=== PATIENT | male | born 1990 | race Caucasian/White ===

== ENCOUNTER 2025-08-19 16:11 | Emergency (ER) | payer OTHER ==
[~2025-08-19] VITALS: Ht 172.7 cm; Wt 90.0 kg
[2025-08-19 16:19] VITALS: TEMP 97.9
[2025-08-19] MEDS: LIDOCAINE 1% 10 ML VIAL ID ONE (18:25)
[2025-08-19] MEDS: PERTUSS(ACELL),DIPH,TET/PF 0.5 ML SYRINGE [ADULT] IM. ONE (18:25)
[2025-08-19] MEDS ORDERED: CEPH-558 PO (18:42)
[2025-08-19] MEDS ORDERED: IBUP-1492 PO (18:42)
[2025-08-19] MEDS ORDERED: SULF1TAB94 PO (18:42)
[2025-08-19 19:00] VITALS: BP 130/84; PULSE 75; RESP 18; O2SAT 98
[2025-08-19] MEDS: CEPHALEXIN MONOHYDRATE 500 MG CAPSULE PO ONE (19:00)
[2025-08-19] MEDS: SULFAMETHOX/TRIMETH DS 800-160 MG/TABLET PO ONE (19:00)
== END 2025-08-19 19:12 | disposition home or self-care (01) ==
LOC: EMS 16:11
DX: S61.214A Laceration without foreign body of right ring finger without damage to nail, initial encounter (principal); W22.8XXA Striking against or struck by other objects, initial encounter; Y93.89 Activity, other specified; Y92.89 Other specified places as the place of occurrence of the external cause; Y99.8 Other external cause status
CPT/HCPCS: 90715; 99283